=== PATIENT | female | born 1990 | race Caucasian/White ===

== ENCOUNTER 2018-03-07 11:31 | Emergency (ER) | END 2018-03-07 13:08 | disposition home or self-care (01) ==

== ENCOUNTER 2018-10-27 11:50 | Emergency (ER) | payer OTHER ==
[~2018-10-27] VITALS: Wt 57.0 kg
[~2018-10-27 11:50] MED LIST: IBUP-1542 PO
[2018-10-27 11:52] VITALS: BP 119/74; PULSE 69; RESP 18
[2018-10-27] MEDS ORDERED: CYCL10TA7 PO (14:04)
[2018-10-27] MEDS ORDERED: IBUP-1561 PO (14:04)
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
== END 2018-10-27 14:30 | disposition left against medical advice (07) ==
LOC: FTE 11:50
DX: M25.511 Pain in right shoulder (principal); R07.9 Chest pain, unspecified
CPT/HCPCS: 71045; 81025